=== PATIENT | female | born 1955 | race Two or more races ===

== ENCOUNTER 2021-08-27 15:36 | Emergency (ER) | payer MEDICARE, MEDICAID ==
[~2021-08-27] VITALS: Ht 154.9 cm; Wt 49.9 kg
[2021-08-27] MEDS ORDERED: KETOROLAC TROMETH 60MG/2ML VIAL IM ONE (20:00)
[2021-08-27] MEDS ORDERED: methylPREDNISolone SOD SUCC 125 MG/2 ML VL IM ONE (20:00)
[2021-08-27 20:27] VITALS: BP 142/83
== END 2021-08-28 04:09 | disposition home or self-care (01) ==
LOC: ER 15:36
DX: S20.211A Contusion of right front wall of thorax, initial encounter (principal); J44.9 Chronic obstructive pulmonary disease, unspecified; W19.XXXA Unspecified fall, initial encounter; Y93.89 Activity, other specified; Y92.89 Other specified places as the place of occurrence of the external cause; Y99.8 Other external cause status
CPT/HCPCS: 71111; 72131; 93005; 96372; 99284; J1885; J2930

== ENCOUNTER 2024-11-30 10:48 | Inpatient (IN) | payer MEDICARE, MEDICAID ==
[~2024-11-30] VITALS: Ht 154.9 cm; Wt 54.8 kg
--- NOTE | 2024-11-30 11:13 | ECG ---
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
--- NOTE | 2024-11-30 11:14 | ED.PDOC ---
History of Present Illness HPI Comments 69F presents to the ER w/ prior Hx of COPD which may be associated to the c/c of SOB. Pt reports that she was at her daughters house where there were a lot of sick people and the pt started to notice CP/SOB 8 days ago. Pt states that the SOB/CP have been worsening w/ time. Denies chills, fever, N/V/D, or no other associated symptom's, modifiers, recent injuries. 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 History Family History Family History: Reviewed,noncontributory to illness, Unknown Social History Smoker: Non-Smoker Alcohol: Denies ETOH Use Drugs: Denies Drug Use Lives In: Home Constitutional: denies: chills, diaphoresis, fatigue, fever, malaise, sweats, weakness, others EENTM: denies: blurred vision, double vision, ear bleeding, ear discharge, ear drainage, ear pain, ear ringing, eye pain, eye redness, hearing loss, mouth pain, mouth swelling, nasal discharge, nose bleeding, nose congestion, nose pain, photophobia, tearing, throat pain, throat swelling, voice changes, others Respiratory: reports: shortness of breath; denies: cough, hemoptysis, orthopnea, SOB at rest, SOB with excertion, stridor, wheezing, others Cardiovascular: reports: chest pain; denies: dizzy spells, diaphoresis, Dyspnea on exertion, edema, irregular heart beat, left arm pain, lightheadedness, palpitations, PND, syncope, others Gastrointestinal: denies: abdomen distended, abdominal pain, blood streaked bowels, constipated, diarrhea, dysphagia, difficulty swallowing, hematemesis, melena, nausea, poor appetite, poor fluid intake, rectal bleeding, rectal pain, vomiting, others Genitourinary: denies: abnormal vagina bleeding, burning, dyspareunia, dysuria, flank pain, frequency, hematuria, incontinence, pain, , vagina discharge, urgency, others Neurological: denies: dizziness, fainting, headache, left sided numbness, left sided weakness, numbness, paresthesia, pre-existing deficit, right sided num bness, right sided weakness, seizure, speech problems, tingling, tremors, weakness, others Musculoskeletal: denies: back pain, gout, joint pain, joint swelling, muscle pain, muscle stiffness, neck pain, others Integumetry: denies: bruises, change in color, change in hair/nails, dryness, laceration, lesions, lumps, rash, wounds, others Allergic/Immunocompromised: denies: Difficulty Healing, Frequent Infections, Hives, Itching, others Hematologic/Lymphatic: denies: anemia, blood clots, easy bleeding, easy bruising, swollen glands, others Endocrine: denies: excessive hunger, excessive sweating, excessive thirst, excessive urination, flushing, intolerance to cold, intolerance to heat, unexplained weight gain, unexplained weight loss, others Psychiatric: denies: anxiety, bipolar disorder, depression, hopeless, panic disorder, schizophrenia, sleepless, suicidal, others All Other Systems: Reviewed and Negative Physical Exam General Appearance: Moderate Distress, Normal HEENT: Normal ENT Inspection, Pharynx Normal, TMs Normal Neck: Full Range of Motion, Non-Tender, Normal, Normal Inspection Respiratory: Accessory Muscle Use, Chest Non-Tender, Respiratory Distress, Wheezing Cardiovascular: No Edema, No JVD, No Murmur, No Gallop, Normal Peripheral Pu lses, Regular Rate/Rhythm Breast Exam: Deferred Gastrointestinal: No Organomegaly, Non Tender, No Pulsatile Mass, Normal Bowel Sounds, Soft Genitalia: Deferred Pelvic: Deferred Rectal: Deferred Extremities: No calf tenderness, Normal capillary refill, Normal inspection, Normal range of motion, Non-tender, No pedal edema Musculoskeletal : Apperance: Normal Neurologic: Alert, tree surgeon helper II-XII nml as Tested, No Motor Deficits, Normal Affect, Normal Mood, No Sensory Deficits Cerebellar Function: Normal Reflexes: Normal Skin: Dry, Normal Color, Warm Peripheral Pulses: 3+ Radial (R), 3+ Radial (L) Lymphatic: No Adenopathy Was a procedure done? Was a procedure done?: No Differential Dx Considerations may include: COPD Electrolyte imbalance X-Ray, Labs, Meds, VS Vital Signs Date Time Temp Pulse Resp B/P (MAP) Pulse Ox O2 Delivery O2 Flow Rate FiO2 11/30/24 11:02 90 11/30/24 11:00 99.2 62 17 149/95 (113) 91 99.2 11/30/24 10:59 17 97 Nasal Cannula* 2 28 Patient alert. Complaining of shortness a breath. History of COPD. Placed on oxygen. Using accessory muscles. She does have inflammation of the lungs. Possible pneumonitis. Was given breathing treatment. Was given steroid. Explained to the patient. Continue to monitor. Was given Rocephin. Was given azithromycin. Time of 1ST Reevaluation: 11:40 Reevaluation 1ST: Unchanged Patient Education/Counseling: Diagnosis, Treatment, Prognosis Family Education/Counseling: No Family Present Departure 1 Departure Time of Disposition: 11:27 Impression: Primary Impression: Acute respiratory failure Qualified Codes: J96.01 - Acute respiratory failure with hypoxia Additional Impressions: COPD exacerbation Pneumonitis Disposition: ADMITTED INPATIENT Admit to: Med Surg Condition: Guarded Critical Care Note Critical Care Time?: Yes (90 min-critical care time only) Critical care comment: Placed on oxygen Stability Stability form required: No Heart Score Heart Score: Heart Score Response (Comments) Value History N/A 0 EKG N/A 0 Age N/A 0 Risk Factors N/A 0 Troponin N/A 0 Total 0 I personally scribed for KRANTHI DAVENPORT MD ([email or web address]) on 11/30/24 at 11:14. Electronically submitted by Rocky Dorman ([email or web address]). KRANTHI DAVENPORT MD Nov 30, 2024 11:14
--- NOTE | 2024-11-30 11:39 | DVH ---
CHEST RADIOGRAPH Indication: sob Technique: Single frontal view of the chest was obtained COMPARISON: None FINDINGS: Lines and Tubes: None Lungs: Lungs are hyperinflated suggestive of COPD. Biapical scarring. Pleura: No effusion. No pneumothorax. Cardiomediastinal contours: Unremarkable Bones: Unremarkable IMPRESSION: Hyperinflated lungs suggestive of COPD. No effusion or pneumothorax.
[2024-11-30 11:49] LABS: Basophils # (auto) 0.1 10 ^3/uL (0-0.2); Basophils % (auto) 0.9 % (0.0-2.0); Eosinophils # (auto) 0 10 ^3/uL (0-0.8); Eosinophils % (auto) 0.5 % (0.0-7.0); Hematocrit 42.9 % (36.0-46.0); Hemoglobin 14.2 g/dL (12.2-16.2); Lymphocytes # (auto) 1.2 10 ^3/uL (0.4-5.4); Lymphocytes % (auto) 20.9 % (10.0-50.0); Mean Corpuscular Hemoglobin 31.5 pg (28.0-32.0); Mean Corpuscular Hgb Conc. 33.1 g/dL (32.0-36.0); Monocytes # (auto) 0.5 10 ^3/uL (0-1.3); Monocytes % (auto) 9.1 % (0.0-12.0); Neutrophils # (auto) 4.1 10 ^3/uL (1.6-8.6); Neutrophils % (auto) 68.6 % (37.0-80.0); Platelet Count (auto) 286 10^3/uL (140-450); Red Blood Cells 4.51 10^6/uL (4.0-5.20); Red Cell Distribution Width 14.7 % (11.8-14.3); White Blood Cell 5.9 10^3/uL (4.4-10.8)
[2024-11-30 11:59] LABS: Chloride 104 mmol/L (98-107); Sodium 139 mmol/L (136-145)
[2024-11-30 12:00] LABS: Anion Gap 6 (5-15); Carbon Dioxide 29 mmol/L (20-31)
[2024-11-30 12:01] LABS: Calcium 9.5 mg/dL (8.7-10.4)
[2024-11-30 12:06] LABS: BUN/Creatinine Ratio 21.3 (10.0-20.0); Blood Urea Nitrogen 17 mg/dL (9-23); Glucose 123 mg/dL (74-106)
[2024-11-30] MEDS: IPRATROPIUM BROM 0.5 MG/2.5ML INH SOL NEB ONE (12:06)
[2024-11-30] MEDS: ALBUTEROL SULF 2.5 MG/0.5ML(0.5%) NEB SOLN NEB ONE (12:07)
--- NOTE | 2024-11-30 14:57 | DVHHP2 ---
Admitting Diagnosis: Shortness of breaths History of Present Illness 69F presents to the ER w/ prior Hx of COPD which may be associated to the c/c of SOB. Pt reports that she was at her daughters house where there were a lot of sick people and the pt started to notice CP/SOB 8 days ago. Pt states that the SOB/CP have been worsening w/ time. Denies chills, fever, N/V/D, or no other associated symptom's, modifiers, recent injuries. Chief Complaint: Shortness of Breath PAST MEDICAL HISTORY: COPD Surgical History: Denies all surgeries TICK INSPECTOR History: No Pertinent TICK INSPECTOR History Family History Family History: Reviewed,noncontributory to illness, Unknown Social History Smoker: Non-Smoker Alcohol: Denies ETOH Use Drugs: Denies Drug Use Lives In: Home Allergies: Coded Allergies: NO KNOWN ALLERGIES (Unverified , 08/27/21) Vital Signs Vital Signs Date Time Temp Pulse Resp B/P (MAP) Pulse Ox O2 Delivery O2 Flow Rate FiO2 11/30/24 12:07 18 95 Nasal Cannula* 2 28 11/30/24 11:02 90 11/30/24 11:00 99.2 149/95 (113) 99.2 Physical Exam Generally-89 years old woman, frail, sitting on chair. Mild distress HEENT-atraumatic normocephalic Heart-regular rate and rhythm Lungs decreased breath sounds bilateral lower lung iqbal Abdomen soft nontender nondistended Musculoskeletal-no edema cyanosis Neuro-AO x3, no focal deficits Results Labs Test 11/30/24 11:35 Range/Units White Blood Count 5.9 4.4-10.8 10^3/uL Red Blood Count 4.51 4.0-5.20 10^6/uL Hemoglobin 14.2 12.2-16.2 g/dL Hematocrit 42.9 36.0-46.0 % Mean Corpuscular Volume 95.0 80.0-100.0 fL Mean Corpuscular Hemoglobin 31.5 28.0-32.0 pg Mean Corpuscular Hemoglobin Concent 33.1 32.0-36.0 g/dL Red Cell Distribution Width 14.7 H 11.8-14.3 % Platelet Count 286 140-450 10^3/uL Mean Platelet Volume 7.8 6.9-10.8 fL Neutrophils (%) (Auto) 68.6 37.0-80.0 % Lymphocytes (%) (Auto) 20.9 10.0-50.0 % Monocytes (%) (Auto) 9.1 0.0-12.0 % Eosinophils (%) (Auto) 0.5 0.0-7.0 % Basophils (%) (Auto) 0.9 0.0-2.0 % Neutrophils # (Auto) 4.1 1.6-8.6 10 ^3/uL Lymphocytes # (Auto) 1.2 0.4-5.4 10 ^3/uL Monocytes # (Auto) 0.5 0-1.3 10 ^3/uL Eosinophils # (Auto) 0 0-0.8 10 ^3/uL Basophils # (Auto) 0.1 0-0.2 10 ^3/uL Nucleated Red Blood Cells 0.0 % Sodium Level 139 136-145 mmol/L Potassium Level 4.0 3.5-5.1 mmol/L Chloride Level 104 98-107 mmol/L Carbon Dioxide Level 29 20-31 mmol/L Anion Gap 6 5-15 Blood Urea Nitrogen 17 9-23 mg/dL Creatinine 0.80 0.550-1.02 mg/dL Glomerular Filtration Rate Calc 80 >90 mL/min BUN/Creatinine Ratio 21.3 H 10.0-20.0 Serum Glucose 123 H 74-106 mg/dL Calcium Level 9.5 8.7-10.4 mg/dL Troponin I High Sensitivity 6 </=34 ng/L Primary Diagnosis Acute hypoxic respiratory failure Lovenox COPD exacerbation possible superimposed pneumonia Plan Status post Solu-Medrol 125 mg daily Continue Solu-Medrol 60 mg q.6 Albuterol and ipratropium q.6 hours nebulizer Check sputum culture, pro, CRP Ceftriaxone 1 g daily, azithromycin 500 mg IV for empiric antibiotics. Discontinue if no pneumonia suspected Saturation goal greater than 92% Respiratory status Full code Lovenox for DVT prophylaxis PPI for GI prophylaxis Regular diet Plan discussed with: Patient Problems List: (1) Pneumonia (2) COPD exacerbation Status: Acute (3) Acute respiratory failure Status: Acute Date of Service: Nov 30, 2024 Billing Provider: MARCEL WEINBERG MD Common Visit Codes: [id number] INP/OBS CARE (HIGH) MARCEL WEINBERG MD Nov 30, 2024 14:57
[2024-11-30] MEDS: cefTRIAXone 1GM/50ML D5W 50 ML IV SCH (15:00)
[2024-11-30] MEDS ORDERED: IPRATROPIUM BROM 0.5 MG/2.5ML INH SOL NEB SCH (15:00)
[2024-11-30] MEDS ORDERED: ALBUTEROL SULF 2.5 MG/0.5ML(0.5%) NEB SOLN NEB SCH (15:00)
[2024-11-30] MEDS ORDERED: methylPREDNISolone SOD SUCC 125 MG/2 ML VL IV SCH (15:00)
[2024-11-30] MEDS: methylPREDNISolone SOD SUCC 125 MG/2 ML VL IV ONE (15:12)
[2024-11-30] MEDS ORDERED: ONDANSETRON HCL 4 MG/2 ML VIAL IV PRN (15:15)
[2024-11-30] MEDS ORDERED: ACETAMINOPHEN 325 MG TAB PO PRN (15:15)
[2024-11-30] MEDS ORDERED: DOCUSATE SOD 100 MG CAP PO PRN (15:15)
[2024-11-30] MEDS: AZITHROMYCIN 500MG/ 250ML 250 ML IV SCH (15:30)
[2024-11-30 15:36] VITALS: TEMP 99.2; O2SAT 95
[2024-11-30 17:13] LABS: Urine Bacteria None Seen /hpf (None Seen)
[2024-11-30 17:26] LABS: Urine Blood 1+ /uL (Negative); Urine Budding Yeast OCCASIONAL /hpf (None Seen); Urine Clarity Clear (Clear); Urine Color Yellow (Yellow); Urine Mucus FEW (None Seen); Urine Protein, UAD 1+ (Negative); Urine Specific Gravity 1.041 (1.001-1.035); Urine Squamous Epithelial Cell FEW /hpf (<5); Urine Urobilinogen 4 mg/dL (Negative); Urine WBC < 1 /HPF (0-5); Urine pH 6.5 (5.0-9.0)
[2024-11-30 18:41] LABS: COVID19 ANTIGEN SOFIA FIA NEGATIVE (NEGATIVE); Rapid Influenza A Negative (Negative); Rapid Influenza B Negative (Negative)
[2024-11-30 18:47] VITALS: PULSE 71; PULSE 76; RESP 22; O2SAT 95; O2SAT 96
[2024-11-30] MEDS: IPRATROPIUM BROM 0.5 MG/2.5ML INH SOL NEB SCH (20:55)
[2024-11-30] MEDS: ALBUTEROL SULF 2.5 MG/0.5ML(0.5%) NEB SOLN NEB SCH (20:55)
[2024-11-30 22:40] VITALS: PULSE 80; RESP 22; O2SAT 93
[2024-11-30] MEDS: HYDROcodone-ACET 5/325MG TAB PO PRN (22:53)
[2024-11-30] MEDS: methylPREDNISolone SOD SUCC 125 MG/2 ML VL IV SCH (22:54)
[2024-11-30] MEDS: SODIUM CHLOR 0.9% PF (SALINE LOCK) 10ML VIAL/SYR IV SCH (22:54)
[2024-12-01] VITALS (20 sets, daily range): BP systolic 125–148; BP diastolic 59–78; PULSE 61–84; RESP 14–20; TEMP 97–98.2; O2SAT 86–100
[2024-12-01] MEDS ORDERED: FAMO-12 PO (06:59)
[2024-12-01] MEDS ORDERED: HYDR-4798 PO (06:59)
[2024-12-01 07:04] LABS: Alanine Aminotransferase 23 U/L (7-40); Albumin 4.8 g/dL (3.2-4.8); Alkaline Phosphatase 95 U/L (46-116); Anion Gap 7 (5-15); Aspartate Aminotransferase 25 U/L (13-40); BUN/Creatinine Ratio 31.3 (10.0-20.0); Bilirubin, Total 0.3 mg/dL (0.2-1.0); Blood Urea Nitrogen 20 mg/dL (9-23); Calcium 9.9 mg/dL (8.7-10.4); Carbon Dioxide 30 mmol/L (20-31); Chloride 103 mmol/L (98-107); Sodium 140 mmol/L (136-145)
[2024-12-01 07:05] LABS: Glucose 181 mg/dL (74-106)
[2024-12-01 07:06] LABS: Basophils # (auto) 0 10 ^3/uL (0-0.2); Basophils % (auto) 0.2 % (0.0-2.0); Eosinophils # (auto) 0 10 ^3/uL (0-0.8); Hematocrit 38.2 % (36.0-46.0); Hemoglobin 13.3 g/dL (12.2-16.2); Lymphocytes % (auto) 35.4 % (10.0-50.0); Mean Corpuscular Hemoglobin 32.8 pg (28.0-32.0); Mean Corpuscular Hgb Conc. 34.7 g/dL (32.0-36.0); Mean Corpuscular Volume 94.4 fL (80.0-100.0); Monocytes # (auto) 0.1 10 ^3/uL (0-1.3); Monocytes % (auto) 3.8 % (0.0-12.0); Neutrophils # (auto) 1.7 10 ^3/uL (1.6-8.6); Neutrophils % (auto) 60.6 % (37.0-80.0); Nucleated Red Blood Cells % 0.1 %; Platelet Count (auto) 283 10^3/uL (140-450); Red Blood Cells 4.04 10^6/uL (4.0-5.20); Red Cell Distribution Width 14.4 % (11.8-14.3); White Blood Cell 2.8 10^3/uL (4.4-10.8)
[2024-12-01] MEDS: methylPREDNISolone SOD SUCC 40 MG/ML VL IV SCH (09:27)
[2024-12-01] MEDS: ENOXAPARIN SOD 40 MG/0.4 ML SYRINGE SC SCH (09:27)
[2024-12-01] MEDS: PANTOPRAZOLE 40 MG/10 ML VIAL INJ IV SCH (09:28)
--- NOTE | 2024-12-01 10:17 | DVH ---
CT Chest without intravenous contrast INDICATION: sob TECHNIQUE: Multidetector spiral CT of the chest was performed from the lung apices to the upper abdom en. Axial, coronal and sagittal multiplanar reformats were performed. Radiation Dose : 1. Chest: CTDI volume is 4.56 mGy. Dose-length product is 197.36 mGy*cm The dose indicators for CT are the volume Computed Tomography (CT) Dose Index (CTDIvol) and the Dose Length Product (DLP), and are measured in units of mGy and mGy-cm, respectively. These indicators are not patient dose, but values generated from the CT scanner acquisition factors. The report includes radiation exposure data for exposures received during this examination. Comparison: None Findings: Lower neck: Normal thyroid. Lungs: Lungs are hyperinflated suggestive of COPD. Mild paraseptal emphysema. No focal consolidation. Dependent atelectasis. Mild bronchiectasis. Mucoid impaction is present in the left lung base. Heart/Vascular Structures: Coronary artery calcifications. Vascular calcifications of the aorta. Lymph Nodes: No adenopathy Pleura: No pleural effusion or significant pneumothorax. Musculoskeletal: No acute osseous abnormality. Soft tissues: Normal. Upper abdomen: Limited portions of the upper abdomen are unremarkable. IMPRESSION: Lungs are hyperinflated suggestive of COPD. Mild paraseptal emphysema. Dependent atelectasis. Mild bronchiectasis most prominent in the lower lobes and peripheral areas of mucoid impaction in the left lung base. Radiation optimization: All CT scans at this facility use at least one of these dose optimization shivani hniques: automated exposure control mA and/or kV adjustment per patient size (includes targeted exam s where dose is matched to clinical indication) or iterative reconstruction.
--- NOTE | 2024-12-01 13:00 | DVHPNRES ---
Progress Note Date Seen: Dec 01, 2024 Resident Creating Document: MIKE CRUZ RESIDENT Medical Necessity Reason Pt with a Central, PICC or Fol: No Subjective Review of Systems This is a 69-year-old female who presents to the ER w/ c/c of SOB. 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 Alcohol: Denies ETOH Use. Drugs: Denies Drug Use. Lives In: Home She reports that she was at her daughters house where there were a lot of sick people and the pt started to notice shortness of breath 8 days ago. She states that the shortness of breath have been worsening w/ time. Denies chills, fever, N/V/D, or no other associated symptom's, modifiers, recent injuries. On arrival to the ED, patient's has a workup for COPD exacerbation, a chest x- ray demonstrated hyperinflation, no signs of an obvious consolidation, patient was placed on DuoNebs, glucocorticoids, azithromycin. She was initially on oxygen. On my assessment, patient continued to state having mild shortness of breath, dry cough, no fevers, chills, no abdominal pain, nausea, dizziness, lightheadedness, no chest pain. She is currently tolerating diet, ambulatory. Independent. Objective vital signs Vital Sign Date Time Temp Pulse Resp B/P (MAP) Pulse Ox O2 Delivery O2 Flow Rate FiO2 12/01/24 11:27 77 18 98 12/01/24 09:00 97.3 132/64 (86) 97.3 12/01/24 08:15 Nasal Cannula* 2 28 medications Current Medications Medications Dose Ordered Sig/Zonia Route Start Time Stop Time Status Last Admin Dose Admin Ceftriaxone Sodium 50 ml @ 100 mls/hr DAILY IV 11/30/24 15:00 12/01/24 09:26 100 MLS/HR Azithromycin 250 ml @ 125 mls/hr DAILY IV 11/30/24 15:00 12/01/24 11:38 125 MLS/HR Sodium Chloride 10 ml Q8HR IV 11/30/24 22:00 12/01/24 06:10 10 ML Docusate Sodium 100 mg BIDPRN PRN PO 11/30/24 15:15 Acetaminophen 650 mg Q6HP PRN PO 11/30/24 15:15 Acetaminophen/ Hydrocodone Bitart 1 tab Q4HP PRN PO 11/30/24 15:15 12/01/24 09:29 1 TAB Ondansetron HCl 4 mg Q4HP PRN IV 11/30/24 15:15 Enoxaparin Sodium 40 mg DAILY SC 12/01/24 10:00 12/01/24 09:27 40 MG Pantoprazole Sodium 40 mg DAILY IV 12/01/24 10:00 12/01/24 09:28 40 MG Albuterol 2.5 mg Q6H NEB 11/30/24 18:00 12/01/24 11:17 2.5 MG Ipratropium [place] 0.5 mg Q6H NEB 11/30/24 18:00 12/01/24 11:17 0.5 MG Methylprednisolone Sodium Succinate 40 mg BID IV 12/01/24 10:00 12/01/24 09:27 40 MG Examination General: Awake, alert, comfortable appearing, in no acute distress. HEENT: Head is normocephalic and atraumatic. Pupils are equal, round, and reactive to light. Extraocular muscles are intact. No nasal discharge. No facial trauma. Intraoral exam shows moist mucous membranes with no tonsillar enlargement or exudate. Neck: Supple with no cervical lymphadenopathy Heart: Regular rate without murmur, rub, or gallop. Lungs: Scattered wheezing Abdomen: No external sign of injury. Bowel sounds are present. Abdomen is soft, nontender. No rebound, no guarding, no rigidity. There are no palpable masses. There is no flank pain on exam. Extremities: Strong peripheral pulses. There is no clubbing, no cyanosis, and no edema. Skin: No rash. Neurologic: Cranial nerves II-XII intact without motor, sensory, or cerebellar deficit, no asterixis. laboratory and microbiology Laboratory Tests 12/01/24 06:28 Test 12/01/24 06:28 Range/Units Serum Glucose 181 H 74-106 mg/dL Labs and/or images reviewed: Labs reviewed by me, Image(s) reviewed by me Problem List/Assessment/Plan Problem List/Assessment/Plan Acute hypoxic respiratory failure COPD exacerbation, emphysematous Atelectasis Bronchiectasis Hyperglycemia likely due to corticosteroid Starvation ketosis Plan: ordered chest ct, demonstrated hyperinflation, emphysema, bulla, atelectasis pending echo continue solu medrol 40mg iv bid continue azithromycin 500mg iv qd continue duonebs q6 prn pending sputum cx covid and flu (-) Goals of care discussed for over 30mins. FULL CODE Case was discussed with dr. talavera Plan discussed with: Patient My Orders My Orders Orders - MIKE CRUZ RESIDENT Procedure Category Date Status Time Chest Without Contrast CT 12/01/24 Resulted 08:04 Methylprednisolone PHA 12/01/24 In Process Sod Succ (Solu Medrol 10:00 Incentive Spirometry ORDERS 12/01/24 Transmitted Q 1hr 10:50 Date of Service: Dec 01, 2024 Billing Provider: STEPHANIE TALAVERA MD Common Visit Codes: [id number] INP/OBS CARE(HIGH) Secondary Visit Codes: [id number] CARE PLAN 30 MINUTES MIKE CRUZ RESIDENT Dec 01, 2024 13:00 STEPHANIE TALAVERA MD Dec 02, 2024 17:26
--- NOTE | 2024-12-01 17:09 | DVHSR ---
APPROVED REPORT EXAM: Two-dimensional and M-mode echocardiogram with Doppler and color Doppler. Blood Pressure: 140/73 mmHg INDICATION Chest Pain SOB RISK FACTORS Height: 5'1, Weight: 115 DIMENSIONS LVDd3.8 (3.8-5.7cm)LA (2D)3.1 (1.9-4.0cm)Aortic Root3.2 (2.0-3.7cm) LVDs2.7 (2.5-4.0cm)LA (MM) (1.9-4.0cm)Aortic Cusp Exc1.3 (1.5-2.0cm) EF (%) 55.0 (55-70%)Rt. Atrium4.3 (1.9-4.0cm)Asc. Aorta cm IVSd0.8 (0.7-1.1cm)RV (D)4.2 (1.8-2.4cm) PWd0.7 (0.7-1.1cm) Mitral Valve MitralMitral Stenosis E wave0.80m/sMV Mean GR.mmHg A wave1.11m/sMV Peak GR.79mmHg E/A ratio0.72D MVAcm2 DECEL [id number] 1/2 Timems Aortic Valve Aortic ValveAortic Stenosis V11.47m/Fabian Mean GR.5mmHg V21.44m/Fabian Peak GR.8mmHg LVOT Diameter1.8 (1.8-2.4cm)Doppler AVA2.60cm2 Pulmonic Valve V21.07m/s Tricuspid Valve TR Velocity3.20m/s [id number] Conclusion Normal LV size and systolic function. LVEF 60-65%. Normal wall motion. Grade 1 diastolic dysfunction. Mild RV and RA enlargement. Normal RV systolic function. Mild TR. Trace MR. RVSP estimated at 47 mmHg based on RAP of 8 mmHg. Dilated, collapsing IVC. No pericardial effusion.
[2024-12-02] VITALS (12 sets, daily range): BP systolic 117–137; BP diastolic 56–67; PULSE 56–75; RESP 14–19; TEMP 36.6; O2SAT 92–100
[2024-12-02 06:52] LABS: Calcium 9.7 mg/dL (8.7-10.4); Chloride 107 mmol/L (98-107); Potassium 4.1 mmol/L (3.5-5.1); Sodium 141 mmol/L (136-145)
[2024-12-02 06:53] LABS: Anion Gap 8 (5-15); Carbon Dioxide 26 mmol/L (20-31)
[2024-12-02 06:58] LABS: BUN/Creatinine Ratio 31.3 (10.0-20.0); Blood Urea Nitrogen 20 mg/dL (9-23)
[2024-12-02 07:00] LABS: Glucose 158 mg/dL (74-106)
[2024-12-02 07:10] LABS: Basophils # (auto) 0 10 ^3/uL (0-0.2); Basophils % (auto) 0.2 % (0.0-2.0); Eosinophils # (auto) 0 10 ^3/uL (0-0.8); Hematocrit 37.4 % (36.0-46.0); Hemoglobin 12.7 g/dL (12.2-16.2); Lymphocytes # (auto) 1.1 10 ^3/uL (0.4-5.4); Lymphocytes % (auto) 12.8 % (10.0-50.0); Mean Corpuscular Hemoglobin 32.6 pg (28.0-32.0); Mean Corpuscular Volume 95.9 fL (80.0-100.0); Monocytes # (auto) 0.4 10 ^3/uL (0-1.3); Monocytes % (auto) 4.1 % (0.0-12.0); Neutrophils # (auto) 7.1 10 ^3/uL (1.6-8.6); Neutrophils % (auto) 82.9 % (37.0-80.0); Platelet Count (auto) 276 10^3/uL (140-450); Red Cell Distribution Width 14.9 % (11.8-14.3); White Blood Cell 8.6 10^3/uL (4.4-10.8)
--- NOTE | 2024-12-02 09:15 | DVHDSRES ---
Discharge Summary Date of Admission Resident Creating Document: MIKE CRUZ RESIDENT Nov 30, 2024 at 15:01 Date of Discharge: Dec 02, 2024 Admitting Diagnosis COPD exacerbation Labs/Diagnostic Data: Laboratory Results Test 12/02/24 05:32 12/01/24 06:28 11/30/24 17:11 11/30/24 16:49 White Blood Count 8.6 10^3/uL (4.4-10.8) Red Blood Count 3.90 10^6/uL (4.0-5.20) Hemoglobin 12.7 g/dL (12.2-16.2) Hematocrit 37.4 % (36.0-46.0) Mean Corpuscular Volume 95.9 fL (80.0-100.0) Mean Corpuscular Hemoglobin 32.6 pg (28.0-32.0) Mean Corpuscular Hemoglobin Concent 34.0 g/dL (32.0-36.0) Red Cell Distribution Width 14.9 % (11.8-14.3) Platelet Count 276 10^3/uL (140-450) Mean Platelet Volume 7.9 fL (6.9-10.8) Neutrophils (%) (Auto) 82.9 % (37.0-80.0) Lymphocytes (%) (Auto) 12.8 % (10.0-50.0) Monocytes (%) (Auto) 4.1 % (0.0-12.0) Eosinophils (%) (Auto) 0.0 % (0.0-7.0) Basophils (%) (Auto) 0.2 % (0.0-2.0) Neutrophils # (Auto) 7.1 10 ^3/uL (1.6-8.6) Lymphocytes # (Auto) 1.1 10 ^3/uL (0.4-5.4) Monocytes # (Auto) 0.4 10 ^3/uL (0-1.3) Eosinophils # (Auto) 0 10 ^3/uL (0-0.8) Basophils # (Auto) 0 10 ^3/uL (0-0.2) Nucleated Red Blood Cells 0.0 % Sodium Level 141 mmol/L (136-145) Potassium Level 4.1 mmol/L (3.5-5.1) Chloride Level 107 mmol/L (98-107) Carbon Dioxide Level 26 mmol/L (20-31) Anion Gap 8 (5-15) Blood Urea Nitrogen 20 mg/dL (9-23) Creatinine 0.64 mg/dL (0.550-1.02) Glomerular Filtration Rate Calc 96 mL/min (>90) BUN/Creatinine Ratio 31.3 (10.0-20.0) Serum Glucose 158 mg/dL (74-106) Calcium Level 9.7 mg/dL (8.7-10.4) Total Bilirubin 0.3 mg/dL (0.2-1.0) Aspartate Amino Transferase (AST) 25 U/L (13-40) Alanine Aminotransferase (ALT) 23 U/L (7-40) Alkaline Phosphatase 95 U/L (46-116) B-Type Natriuretic Peptide 51.59 pg/mL (0-100) Total Protein 8.0 g/dL (5.7-8.2) Albumin 4.8 g/dL (3.2-4.8) Urine Color Yellow (Yellow) Urine Clarity Clear (Clear) Urine pH 6.5 (5.0-9.0) Urine Specific Atkins 1.041 (1.001-1.035) Urine Protein 1+ (Negative) Urine Ketones 1+ (Negative) Urine Blood 1+ /uL (Negative) Urine Nitrite 2+ (Negative) Urine Bilirubin Negative (Negative) Urine Urobilinogen 4 mg/dL (Negative) Urine Leukocyte Esterase Negative /uL (Negative) Urine RBC 11 /hpf (0 - 4) Urine Microscopic WBC < 1 /HPF (0-5) Urine Squamous Epithelial Cells Few /hpf (<5) Urine Calcium Oxalate Crystals Few (None Seen) Urine Bacteria None seen /hpf (None Seen) Urine Mucus Few (None Seen) Urine Yeast (Budding) Occasional /hpf (None Urine Glucose Normal mg/dL (Normal) Influenza Type A Antigen Negative (Negative) Influenza Type B Antigen Negative (Negative) SARS-CoV-2 Antigen (Rapid) Negative (NEGATIVE) Test 11/30/24 11:35 Troponin I High Sensitivity 6 ng/L (</=34) C-Reactive Protein High Sensitivity 4.91 mg/dL (<1.0) Other Laboratory Tests 12/02/24 05:32 Brief Hx & Hospital Course: This is a 69-year-old female who presents to the ER w/ c/c of SOB. PAST MEDICAL HISTORY: COPD Surgical History: Denies all surgeries OPTOMECHANICAL TECHNICIAN History: No Pertinent OPTOMECHANICAL TECHNICIAN History Family History: Reviewed,noncontributory to illness, Unknown Social History: Smoker: quit smoking, prior heavy smoker 1ppd. Alcohol: Denies ETOH Use. Drugs: Denies Drug Use. Lives In: Home She reports that she was at her daughters house where there were a lot of sick people and the pt started to notice shortness of breath 8 days ago. She states that the shortness of breath have been worsening w/ time. Denies chills, fever, N/V/D, or no other associated symptom's, modifiers, recent injuries. On arrival to the ED, patient's has a workup for COPD exacerbation, a chest x- ray demonstrated hyperinflation, no signs of an obvious consolidation, patient was placed on DuoNebs, glucocorticoids, azithromycin. She was initially on oxygen. COVID and flu tests were negative. On my assessment, patient continued to state having mild shortness of breath, dry cough, no fevers, chills, no abdominal pain, nausea, dizziness, lightheadedness, no chest pain. She is currently tolerating diet, ambulatory. Independent. Physical CT scan of the chest which demonstrated significant emphysema, bulla, atelectasis, mild bronchiectasis. Patient has significant clinical improvement during hospitalization. We will wean her off the oxygen, she currently denies any significant shortness of breath, chest pain, dizziness, lightheadedness, abdominal pain. She is currently tolerating diet, ambulatory, independent. Physical examination as below: General: Awake, alert, comfortable appearing, in no acute distress. HEENT: Head is normocephalic and atraumatic. Pupils are equal, round, and reactive to light. Extraocular muscles are intact. No nasal discharge. No facial trauma. Intraoral exam shows moist mucous membranes with no tonsillar enlargement or exudate. Neck: Supple with no cervical lymphadenopathy Heart: Regular rate without murmur, rub, or gallop. Lungs: Scattered wheezing Abdomen: No external sign of injury. Bowel sounds are present. Abdomen is soft, nontender. No rebound, no guarding, no rigidity. There are no palpable masses. There is no flank pain on exam. Extremities: Strong peripheral pulses. There is no clubbing, no cyanosis, and no edema. Skin: No rash. Neurologic: Cranial nerves II-XII intact without motor, sensory, or cerebellar deficit, no asterixis. Patient will be discharged home on continue home medications as prescribed. She will continue taking inhaler Anoro, Ventolin, she will continue azithromycin, prednisone. Patient will be follow up in the distress clinic by Dr. Camejo on following Saturday. Patient verbalized understanding and agree with the DC plan, we spent over 30 minute explaining the plan. Case was discussed with dr. talavera Operations or Procedures [address] [address] Ph: [phone] DIAGNOSTIC IMAGING Diagnostic Imaging Report : [id number] Signed PATIENT: SG MCCALLUM ACCT: [id number] UNIT: [id number] : 1955 LOC: CENTRAL ROOM / BED: [facility] / A AGE / SEX: 69 / F ADM STATUS: ADM IN SERVICE 09 ORDERING PHYSICIAN: MIKE CRUZ RESIDENT PROCEDURE(s): ECIDC - ECHO 2D MODE CARDIAC DOP REASON: sob, chest pain ORDER NUMBER(s): [id number], ACCESSION NUMBER(s): [id number] APPROVED REPORT EXAM: Two-dimensional and M-mode echocardiogram with Doppler and color Doppler. Blood Pressure: 140/73 mmHg INDICATION Chest Pain SOB RISK FACTORS Height: 5'1, Weight: 115 DIMENSIONS LVDd 3.8 (3.8-5.7cm) LA (2D) 3.1 (1.9-4.0cm) Aortic Root 3.2 (2.0- 3.7cm) LVDs 2.7 (2.5-4.0cm) LA (MM) (1.9-4.0cm) Aortic Cusp Exc 1.3 (1.5- 2.0cm) EF (%) 55.0 (55-70%) Rt. Atrium 4.3 (1.9-4.0cm) Asc. Aorta cm IVSd 0.8 (0.7-1.1cm) RV (D) 4.2 (1.8-2.4cm) PWd 0.7 (0.7-1.1cm) Mitral Valve Mitral Mitral Stenosis E wave 0.80m/s MV Mean GR. mmHg A wave 1.11m/s MV Peak GR. 79mmHg E/A ratio 0.7 2D MVA cm2 DECEL Time 200ms PRESS 1/2 Time ms Aortic Valve Aortic Valve Aortic Stenosis V1 1.47m/s AO Mean GR. 5mmHg V2 1.44m/s AO Peak GR. 8mmHg LVOT Diameter 1.8 (1.8-2.4cm) Doppler JOHN 2.60cm2 Pulmonic Valve V2 1.07m/s Tricuspid Valve TR Velocity 3.20m/s RVSP 46mmHg Conclusion Normal LV size and systolic function. LVEF 60-65%. Normal wall motion. Grade 1 diastolic dysfunction. Mild RV and RA enlargement. Normal RV systolic function. Mild TR. Trace MR. RVSP estimated at 47 mmHg based on RAP of 8 mmHg. Dilated, collapsing IVC. No pericardial effusion. SIGNED BY: TAYA GUTIERREZ DO SIGNED DATE/TIME: 12/01/24 1707 CC: [place] [id number] Ph: [phone] DIAGNOSTIC IMAGING Diagnostic Imaging Report : [id number] Signed PATIENT: SG MCCALLUM ACCT: [id number] UNIT: [id number] : 1955 LOC: ER ROOM / BED: / AGE / SEX: 69 / F ADM STATUS: REG ER SERVICE 1109 ORDERING PHYSICIAN: KRANTHI DAVENPORT MD PROCEDURE(s): CXRP - CHEST PORTABLE REASON: sob ORDER NUMBER(s): [id number], ACCESSION NUMBER(s): [id number] CHEST RADIOGRAPH Indication: sob Technique: Single frontal view of the chest was obtained COMPARISON: None FINDINGS: Lines and Tubes: None Lungs: Lungs are hyperinflated suggestive of COPD. Biapical scarring. Pleura: No effusion. No pneumothorax. Cardiomediastinal contours: Unremarkable Bones: Unremarkable IMPRESSION: Hyperinflated lungs suggestive of COPD. No effusion or pneumothorax. ATED BY: WESTON LIU MD DICTATED DATE/TIME: 11/30/24 0111 SIGNED BY: WESTON LIU MD SIGNED DATE/TIME: 11/30/24 1137 CC: [place] [id number] Ph: [phone] DIAGNOSTIC IMAGING Diagnostic Imaging Report : [id number] Signed PATIENT: SG MCCALLUM ACCT: [id number] UNIT: [id number] : 1955 LOC: CENTRAL ROOM / BED: 0217 / A AGE / SEX: 69 / F ADM STATUS: ADM IN SERVICE 3 ORDERING PHYSICIAN: MIKE CRUZ RESIDENT PROCEDURE(s): CX2CT - CHEST WITHOUT CONTRAST REASON: sob ORDER NUMBER(s): [id number], ACCESSION NUMBER(s): [id number] CT Chest without intravenous contrast INDICATION: sob TECHNIQUE: Multidetector spiral CT of the chest was performed from the lung apices to the upper abdomen. Axial, coronal and sagittal multiplanar reformats were performed. Radiation Dose : 1. Chest: CTDI volume is 4.56 mGy. Dose-length product is 197.36 mGy*cm The dose indicators for CT are the volume Computed Tomography (CT) Dose Index (CTDIvol) and the Dose Length Product (DLP), and are measured in units of mGy and mGy-cm, respectively. These indicators are not patient dose, but values generated from the CT scanner acquisition factors. The report includes radiation exposure data for exposures received during this examination. Comparison: None Findings: Lower neck: Normal thyroid. Lungs: Lungs are hyperinflated suggestive of COPD. Mild paraseptal emphysema. No focal consolidation. Dependent atelectasis. Mild bronchiectasis. Mucoid impaction is present in the left lung base. Heart/Vascular Structures: Coronary artery calcifications. Vascular calcifications of the aorta. Lymph Nodes: No adenopathy Pleura: No pleural effusion or significant pneumothorax. Musculoskeletal: No acute osseous abnormality. Soft tissues: Normal. Upper abdomen: Limited portions of the upper abdomen are unremarkable. IMPRESSION: Lungs are hyperinflated suggestive of COPD. Mild paraseptal emphysema. Dependent atelectasis. Mild bronchiectasis most prominent in the lower lobes and peripheral areas of mucoid impaction in the left lung base. Radiation optimization: All CT scans at this facility use at least one of these dose optimization techniques: automated exposure control mA and/or kV adjustment per patient size (includes targeted exams where dose is matched to clinical indication) or iterative reconstruction. ATED BY: WESTON LIU MD DICTATED DATE/TIME: 12/01/24 1015 SIGNED BY: WESTON LIU MD SIGNED DATE/TIME: 12/01/24 1015 CC: Condition at Discharge: Guarded Final Diagnosis/Problems List Acute hypoxic respiratory failure COPD exacerbation, emphysematous Atelectasis Bronchiectasis Hyperglycemia likely due to corticosteroid Starvation ketosis Discharge Disposition: Home Discharge Statement: "Patient was advised to return to the ER or call 911 if any headaches, dizziness, shortness of breath, chest pain, abdominal pain, bleeding, fevers, or worsening of medical condition. Patient was counseled about treatment plan, medications, possible side effects, patientverbalized understanding. All questions were answered to the best of my ability. This discharge took greater then 30 minutes in planning, reviewing documentation, counseling the patient, and discussing with other team members." ASSESSMENT ASSESSMENT Assessment Date of Service: Dec 02, 2024 Billing Provider: STEPHANIE TALAVERA MD Common Visit Codes: 36315-TLC/OBS DISCH DAY >30min MIKE CRUZ RESIDENT Dec 02, 2024 09:15 STEPHANIE TALAVERA MD Dec 02, 2024 17:28
[2024-12-02] MEDS ORDERED: UMEC1AER IN (09:18)
[2024-12-02] MEDS ORDERED: PRED20TA2 PO (09:18)
[2024-12-02] MEDS ORDERED: ALBUAER3 IN (09:18)
[2024-12-02] MEDS ORDERED: AZIT-43 PO (09:18)
== END 2024-12-02 13:53 | disposition home or self-care (01) | DRG 189 ==
LOC: ER 10:48 → OVERFLOW 15:01 → CENTRAL 12-01 03:46
PROVIDERS: ADMIT Internal Medicine; ATTEND Emergency Medicine
DX: J96.01 Acute respiratory failure with hypoxia (principal); J44.1 Chronic obstructive pulmonary disease with (acute) exacerbation; J98.11 Atelectasis; J47.9 Bronchiectasis, uncomplicated; T73.0XXA Starvation, initial encounter; R73.9 Hyperglycemia, unspecified; T38.0X5A Adverse effect of glucocorticoids and synthetic analogues, initial encounter; J98.4 Other disorders of lung; E88.89 Other specified metabolic disorders; X58.XXXA Exposure to other specified factors, initial encounter; Z20.822 Contact with and (suspected) exposure to COVID-19; J43.9 Emphysema, unspecified; Y92.89 Other specified places as the place of occurrence of the external cause
CPT/HCPCS: 36415; 71045; 71250; 80048; 80053; 81001; 83880; 84484; 85025; 86141; 87426; 87804; 93005; 93306; 94640; 96365; 99291; 99292; G0378; J2470